=== PATIENT | male | born 1995 | race Caucasian/White ===

== ENCOUNTER 2019-11-23 09:14 | Emergency (ER) | payer OTHER ==
[~2019-11-23] VITALS: Ht 185.4 cm; Wt 72.6 kg
[2019-11-23] MEDS ORDERED: LAMICTAL200 MG PO (09:22)
[2019-11-23 09:45] LABS: ABSOLUTE NEUTROPHILS 3.5 thou/uL (1.4-8.2); BASOPHILS 1.5 % (0.0-2.0); EOSINOPHILS 5.8 % (0.0-3.0); HEMATOCRIT 46.9 % (42.0-52.0); HEMOGLOBIN 16.4 gm/dL (14.0-18.0); LYMPHOCYTES 33.8 % (24.0-44.0); MCH 32.4 pg (26.0-34.0); MCHC 35.1 g/dL (28.0-37.0); MCV 92.3 fL (80.0-100.0); MONOCYTES 7.1 % (1.0-8.0); PLATELET COUNT 221 thou/uL (150-400); POLYS 51.8 % (36.0-66.0); RBC 5.08 mil/uL (4.50-6.00); RDW 12.1 % (10.5-14.5); WBC 6.7 thou/uL (4.0-11.0)
[2019-11-23 09:46] LABS: CREATININE 0.9 mg/dL (0.7-1.3); POTASSIUM 3.8 mmol/L (3.5-5.1)
[2019-11-23 09:51] LABS: ALBUMIN 4.6 g/dL (3.4-5.0); DIRECT BILIRUBIN 0.1 mg/dL (<0.1-0.2); TOTAL BILIRUBIN 0.4 mg/dL (0.2-1.0); TOTAL PROTEIN 7.8 g/dL (6.4-8.2)
[2019-11-23 09:52] LABS: URINE BILIRUBIN NEGATIVE (Negative); URINE BLOOD NEGATIVE (Negative); URINE CLARITY CLEAR; URINE COLOR YELLOW; URINE GLUCOSE-RANDOM* NEGATIVE (Negative); URINE KETONES NEGATIVE (Negative); URINE LEUKOCYTES-REFLEX NEGATIVE (Negative); URINE NITRITE-REFLEX NEGATIVE (Negative); URINE PROTEIN (DIPSTICK) NEGATIVE (Negative); URINE SPECIFIC GRAVITY 1.015 (1.005-1.035); URINE UROBILINOGEN 0.2 E.U./dl (0.2-1.0)
[2019-11-23] MEDS ORDERED: ZOFRAN ODT4 MG PO (12:49)
[2019-11-23 12:55] VITALS: BP 124/55
--- NOTE | 2019-11-25 07:41 | EKG ---
[facility] [place] [address] ELECTROCARDIOGRAM REPORT Name: ALISHA NICHOLS Room #: DEP [facility]#: [id number] Admission: 11/23/19 Attend Phys: Discharge: 11/23/19 Date of : [birth year] Report #: [id number] THIS REPORT FOR: cc: FAM - Family physician unknown FAM - Family physician unknown Moutsapha Perdue MD [facility] ~ THIS REPORT FOR: //name// [facility] ED Test Date: 2019-11-23 Test Time: 09:16:32 Pat Name: ALISHA NICHOLS Department: Room: Gender: M Orientation & Mobility Specialist: kf : 1995 Requested By: Irlanda Ny Order Number: [id number] MD: Moustapha Perdue Measurements Intervals [place] Rate: 77 P: 88 [place]: 141 QRS: 62 QRSD: 86 T: 60 QT: 395 QTc: 448 Interpretive Statements Sinus rhythm RSR' in V1 or V2, probably normal variant No previous ECG available for comparison Electronically Signed On 11-25-2019 7:41:25 CDT by Moustapha Perdue [email or web address] <ELECTRONICALLY SIGNED> By: Moustapha Perdue MD, [facility] 11/25/19 0741 5 5 Moustapha Perdue MD, [facility] /EPI
== END 2019-11-23 12:55 | disposition home or self-care (01) ==
LOC: ER 09:14
PROVIDERS: Emergency Medicine
DX: K29.70 Gastritis, unspecified, without bleeding (principal); F17.210 Nicotine dependence, cigarettes, uncomplicated; Z79.899 Other long term (current) drug therapy